=== PATIENT | female | born 1935 | race Caucasian/White ===

== ENCOUNTER 2018-10-14 21:42 | Emergency (ER) | payer MEDICARE ==
[2018-10-14] MEDS ORDERED: Lorazepam 2 MG/ML VIAL ONE (21:57)
--- NOTE | 2018-10-14 22:41 | RAD ---
Frontal radiograph pelvis: 10/14/2018 COMPARISON: None HISTORY: Fall, trauma, pain FINDINGS: The pelvic ring is intact. The femoral heads project normally over the respective acetabulu m. No widening of the sacroiliac joints or pubic symphysis. No displaced fracture seen. IMPRESSION: No displaced fracture noted.
--- NOTE | 2018-10-14 22:45 | CT ---
CERVICAL SPINE CT WITHOUT CONTRAST: 10/14/18 COMPARISON: None. HISTORY: Fall, trauma, pain. TECHNIQUE: Axial CT imaging at 2.5 mm intervals through the cervical spine with coronal and sagittal reformatte d imaging. FINDINGS: The imaged lung apices are unremarkable. The C1 ring is intact. The occipital condyles, the dens, and the C1-2 articulation demonstrate no acu te findings. No acute fracture or evidence of dislocation is seen. There is multilevel bilateral facet and uncove rtebral osteophyte formation. There is multilevel disc space narrowing and posterior osteophyte forma tion, most prominent at C5-6 and C6-7. The Craniocervical junction, atlantoaxial interspace, and cervicothoracic junction demonstrate no ac [place] findings. No anterolisthesis or retrolisthesis. No prevertebral soft tissue swelling. No acute fr acture or dislocation. IMPRESSION: Cervical spine degenerative changes with no acute fracture or evidence of dislocation seen. POS: OFF
--- NOTE | 2018-10-14 22:48 | CT ---
HEAD CT WITHOUT CONTRAST: 10/14/18 HISTORY: Fall, trauma, pain. TECHNIQUE: Axial CT imaging at 5 mm intervals from vertex through skull base without contrast. FINDINGS: There is a posterior scalp hematoma just to the right of midline near the vertex measuring 2.7 cm. No associated calvarial fracture is seen. The imaged paranasal sinuses and mastoid air cells are well a erated. There is moderate cerebral volume loss with associated prominence of the CSF containing space s. Periventricular hypodensity noted, evidence of small vessel disease. No intracranial hemorrhage, m idline shift, or mass effect. IMPRESSION: Cerebral volume loss and evidence of small vessel disease. Focal scalp hematoma noted posteriorly ne ar the vertex with no evidence for associated fracture or intracranial hemorrhage. POS: OFF
== END 2018-10-14 23:33 | disposition home or self-care (01) ==
LOC: ERS 21:42
DX: S16.1XXA Strain of muscle, fascia and tendon at neck level, initial encounter (principal); S00.03XA Contusion of scalp, initial encounter; S70.00XA Contusion of unspecified hip, initial encounter; F03.90 Unspecified dementia, unspecified severity, without behavioral disturbance, psychotic disturbance, mood disturbance, and anxiety; F41.9 Anxiety disorder, unspecified; Z79.01 Long term (current) use of anticoagulants; Z79.899 Other long term (current) drug therapy; Z87.891 Personal history of nicotine dependence; W19.XXXA Unspecified fall, initial encounter
CPT/HCPCS: 70450; 72125; 72170; 96374; J2060

== ENCOUNTER 2019-03-12 21:28 | Observation (INO) | payer MEDICARE ==
[2019-03-12] MEDS ORDERED: Acetaminophen 500 MG TAB ONE (22:29)
--- NOTE | 2019-03-12 22:55 | RAD ---
EXAM: Single view of the chest HISTORY: Preoperative radiograph COMPARISON: None FINDINGS: Single view of the chest shows a normal sized cardiomediastinal silhouette. Increased inte rstitial markings are present. Atherosclerotic calcifications are seen in the aorta There is no evidence of consolidation, mass, or pleural effusion. Degenerative changes are seen in the spine. The patient has a right proximal humerus fracture of uncertain age. IMPRESSION: No evidence of acute cardiopulmonary disease
--- NOTE | 2019-03-12 22:59 | RAD ---
EXAM: 2 views of the right hip HISTORY: Right hip pain after falling from wheelchair COMPARISON: Pelvic radiograph 10/14/2018. FINDINGS: 2 views of the right hip shows malalignment of the right inferior pubic ramus and left supe rior pubic ramus. No degenerative changes are seen. No proximal femur fracture is seen. No soft tissue swelling is present. IMPRESSION: Right inferior pubic ramus and left superior pubic ramus fracture.
--- NOTE | 2019-03-12 23:00 | RAD ---
Exam: Single view of the pelvis HISTORY: Pelvic pain after falling from wheelchair COMPARISON: 10/14/2018 FINDINGS: A single view the pelvis shows malalignment of the right inferior pubic ramus and left supe rior pubic ramus. These were not seen on the prior radiograph and likely represent fractures that have occurred in the interim. No degenerative changes seen in either hip. IMPRESSION: Right inferior pubic ramus and left superior pubic ramus fractures
--- NOTE | 2019-03-12 23:02 | RAD ---
EXAM: 2 views of the right humerus HISTORY: Right arm pain after falling from a wheelchair COMPARISON: None FINDINGS: 2 views of the right humerus shows a fracture of the right humeral neck. No dislocation of the right shoulder is seen. There is also a fracture of the supracondylar distal humerus. IMPRESSION: 1. Right humeral neck fracture 2. Supracondylar distal humerus fracture
--- NOTE | 2019-03-12 23:03 | CT ---
EXAM: CT brain without contrast HISTORY: Fall from wheelchair with multiple fractures. Head trauma. COMPARISON: 10/14/2018 TECHNIQUE: Multiple contiguous axial images were obtained and a CT of the brain without contrast. FINDINGS: There are scattered hypodensities in the subcortical and periventricular white matter consi stent with small vessel ischemic disease. There is no evidence of hydrocephalus, intracranial hemorrhage, or extra-axial fluid collection. The calvarium and overlying soft tissues are unremarkable. The visualized paranasal sinuses and masto id air cells are well aerated. IMPRESSION: No evidence of acute intracranial abnormality
--- NOTE | 2019-03-12 23:03 | RAD ---
EXAM: 3 views of the right shoulder HISTORY: Shoulder pain after falling from wheelchair COMPARISON: None FINDINGS: There is a right humeral neck fracture which is impacted. No dislocation of the glenohumera l joint is seen. Surrounding soft tissue swelling is present. IMPRESSION: Right humeral neck fracture
--- NOTE | 2019-03-12 23:04 | CT ---
EXAM: CT of the cervical spine without contrast HISTORY: Neck pain after fall from wheelchair COMPARISON: 10/14/2018 TECHNIQUE: Multiple contiguous axial images were obtained in a CT of the cervical spine without contr ast. Sagittal and coronal reformats were performed. FINDINGS: The vertebral bodies and intervertebral discs demonstrate normal height and alignment witho ut fracture or subluxation. Moderate degenerative changes are present. No prevertebral soft tissue swelling is seen. The posterior facets are well aligned. Normal alignment of the skull base with the cervical spine is seen. The lung apices and cervical soft tissues are unremarkable. IMPRESSION: No evidence of acute osseous abnormality of the cervical spine.
--- NOTE | 2019-03-12 23:06 | RAD ---
EXAM: 4 views of the right elbow HISTORY: Fall from wheelchair with elbow pain COMPARISON: None FINDINGS: No elbow effusion is seen. There is a fracture of the supracondylar humerus which is intra- articular and predominantly involves the medial epicondyle. No significant degenerative changes are seen. Hardware is seen in the radius and ulna from prior fracture repair of the radius and ulna. IMPRESSION: Acute supracondylar fracture of the humerus.
--- NOTE | 2019-03-12 23:17 | RAD ---
EXAM: 2 views of the right forearm HISTORY: Fall from wheelchair with multiple fractures COMPARISON: None FINDINGS: The patient is status post ORIF of the radius and ulna. The ulnar fracture is fixated with a plate and screws. The radial fracture is spanned by a pin which has broken. Shrapnel is seen in the midportion of the forearm. There is now union of the radial fracture. Severe degenerative changes are seen in the right wrist. There is a supracondylar fracture of the distal humerus involving the medial epicondyle. IMPRESSION: 1. No acute fracture of the radius or ulna 2. Supracondylar distal humerus fracture
[2019-03-12 23:25] LABS: #Eosinphils 0.1 thou/uL (0.0-0.7); #Lymphocytes 0.7 thou/uL (1.20-3.40); #Monocytes 0.6 thou/uL (0.11-0.59); #Neutrophils 9.7 thou/uL (1.40-6.50); %Basophils 0.2 % (0.0-1.0); %Eosinophils 0.5 % (0.0-10.0); %Lymphocytes 6.2 % (21.0-51.0); %Neutrophils 88.2 % (42.0-75.0); Hemoglobin 11.1 g/dL (12.0-16.0); Mean Corpuscular HGB CONC 33.3 g/dL (32.0-36.0); Mean Corpuscular Hemoglobin 29.7 pg (27.0-31.0); Mean Platelet Volume 7.5 fL (7.4-10.4); Platelet Count 268 thou/uL (130-400); RBC Distribution Width 13.2 % (11.5-14.5); Red Blood Cell (RBC) Count 3.75 mill/uL (4.20-5.40)
[2019-03-12 23:31] LABS: PTT 27.8 SEC (22.9-36.1); Prothrombin Time 13.6 SEC (12.0-14.7)
[2019-03-12 23:46] LABS: ALT (SGPT) 10 U/L (8-55); AST (SGOT) 14 U/L (5-34); Albumin 3.5 g/dL (3.4-4.8); Alkaline Phosphatase 61 U/L (40-150); Anion Gap 10 mmol/L (10-20); BUN (Urea Nitrogen) 19 mg/dL (9.8-20.1); Bilirubin, Total 0.4 mg/dL (0.2-1.2); Calc. Creatinine Clearance 0 mL/min (70-130); Calcium 8.8 mg/dL (7.8-10.44); Carbon Dioxide 24 mmol/L (23-31); Chloride 108 mmol/L (98-107); Estimated GFR-MDRD 60; Globulin 2.5 g/dL (2.4-3.5); Glucose 129 mg/dL (83-110); Potassium 3.9 mmol/L (3.5-5.1); Sodium 138 mmol/L (136-145)
[2019-03-12] MEDS ORDERED: Ondansetron PF 4 MG/2 ML Vial ONE (23:58)
[2019-03-12] MEDS ORDERED: Morphine 4 MG/ML VIAL ONE (23:58)
[2019-03-13] MEDS ORDERED: hydrALAZINE 20 MG/ML VIAL SLOW IVP PRN (01:42)
[2019-03-13] MEDS ORDERED: Morphine 4 MG/ML VIAL SLOW IVP PRN (01:42)
[2019-03-13] MEDS ORDERED: Ondansetron ODT 4 MG TAB PO PRN (01:42)
[2019-03-13] MEDS ORDERED: Morphine 2 MG/ML SYRINGE SLOW IVP PRN (01:42)
[2019-03-13] MEDS ORDERED: Ondansetron PF 4 MG/2 ML Vial IVP PRN (01:42)
[2019-03-13] MEDS ORDERED: Dextrose 50% Abboject 50 ML SYRINGE SLOW IVP PRN (01:42)
[2019-03-13] MEDS ORDERED: Dextrose 5% in Water 1,000 ML IV PRN (01:42)
[2019-03-13] MEDS ORDERED: Ketorolac Tromethamine 30 MG/ML VIAL IVP SCH (02:00)
[2019-03-13] MEDS: Sodium Chloride 0.9% 1,000 ML IV SCH ×2 (02:40→11:11)
[2019-03-13] MEDS: Ketorolac Tromethamine 30 MG/ML VIAL IVP SCH ×2 (05:28→11:14)
[2019-03-13 06:21] LABS: #Lymphocytes 0.8 thou/uL (1.20-3.40); #Monocytes 0.5 thou/uL (0.11-0.59); #Neutrophils 6.5 thou/uL (1.40-6.50); %Basophils 0.1 % (0.0-1.0); %Eosinophils 0.3 % (0.0-10.0); %Lymphocytes 10.6 % (21.0-51.0); %Monocytes 6.8 % (0.0-10.0); %Neutrophils 82.1 % (42.0-75.0); Hemoglobin 10.1 g/dL (12.0-16.0); Mean Corpuscular HGB CONC 32.6 g/dL (32.0-36.0); Mean Corpuscular Volume 88.9 fL (78.0-98.0); Mean Platelet Volume 7.7 fL (7.4-10.4); Platelet Count 229 thou/uL (130-400); RBC Distribution Width 13.2 % (11.5-14.5); Red Blood Cell (RBC) Count 3.49 mill/uL (4.20-5.40); White Blood Cell (WBC) Count 7.9 thou/uL (4.8-10.8)
[2019-03-13 06:49] LABS: Anion Gap 11 mmol/L (10-20); BUN (Urea Nitrogen) 19 mg/dL (9.8-20.1); Calc. Creatinine Clearance 46 mL/min (70-130); Calcium 8.2 mg/dL (7.8-10.44); Carbon Dioxide 19 mmol/L (23-31); Chloride 111 mmol/L (98-107); Estimated GFR-MDRD 72; Glucose 135 mg/dL (83-110); Potassium 5.3 mmol/L (3.5-5.1); Sodium 136 mmol/L (136-145)
--- NOTE | 2019-03-13 07:29 | HP ---
REQUESTING PHYSICIAN: Dr. Bolden. ATTENDING SURGEON: Dr. Vail. CONSULTATIONS: Orthopedics, Dr. Conte. HISTORY OF PRESENT ILLNESS: The patient is an 84-year-old female who resides in assisted living facility, who primarily moves a bowel utilizing a wheelchair, though the patient will try to ambulate at times independently, which was the case tonight. The patient was reportedly trying to get to her wheelchair when she fell landing on her buttock and right upper extremity. It was not witness, but nursing staff found her, she was awake and was able to tell them what happened. Family at bedside reports that she uses a wheelchair more frequently over the past several weeks due to arthritic-type pain and deconditioning weakness. ALLERGIES: PENICILLIN. CURRENT MEDICATIONS: MiraLAX, Tylenol, lorazepam, ranitidine, trazodone, escitalopram oxalate, tolterodine, Dexilant. PAST MEDICAL HISTORY: Dementia, GERD. PAST SURGICAL HISTORY: Open reduction and internal fixation of right ulna fracture. SOCIAL HISTORY: Family reports that she smoked greater than 10 years ago. No drug or alcohol use. REVIEW OF SYSTEMS: 10-point review of systems is negative as otherwise stated. PHYSICAL EXAMINATION: VITAL SIGNS: Blood pressure 141/56, heart rate 75, respirations 19, oxygen saturation 97% on room air, and temperature is 98.6. GENERAL: The patient is resting comfortably in bed. She was asleep is I entered the room, but would open her eyes to verbal stimuli. Her Felix Coma Scale is 14, -1 for her eye opening. The patient was verbal and appropriate, was able to interact with me and her family members. HEENT: Head is normocephalic and atraumatic. Eyes, extraocular motions intact. PERRLA bilaterally. Ears are atraumatic without discharge. Nose is atraumatic without discharge. Oropharynx is clear. NECK: Nontender. Trachea is midline. No JVD. CHEST: Clear to auscultation with good inspiratory and expiratory effort. HEART: Regular rate and rhythm. ABDOMEN: Soft, flat, nontender with active bowel sounds. PELVIS: Stable with pain on the right greater than left groin area consistent with her pubic symphysis fractures. EXTREMITIES: Neurovascularly intact x4. The right upper extremity has a small skin tear on the proximal forearm. There is swelling noted at the elbow joint. There is tenderness to palpation to the right shoulder, again consistent with her fractures. BACK: By report is atraumatic and nontender. LABORATORY FINDINGS: White blood cell count 11.0, hemoglobin 11.1, hematocrit 33.4, platelets 268. Sodium 138, potassium 3.9, chloride 108, CO2 of 24, BUN 19, creatinine 0.89, glucose 129. LFTs are unremarkable. PT 13, INR 1.0, PTT 28. RADIOGRAPHIC REPORT: CT of the brain without contrast shows no evidence of acute intracranial abnormality. CT of the C-spine without contrast shows no evidence of acute osseous abnormality of the C-spine. AP chest x-ray shows no evidence of acute cardiopulmonary disease. Radiographs of the right shoulder show a right humeral neck fracture. Views of the right humerus show a right humeral neck fracture and a right supracondylar distal humerus fracture. Views of the right elbow show an acute supracondylar fracture of the humerus. AP pelvis shows right inferior pubic rami fracture and left superior pubic rami fractures. Views of the right hip again show the right inferior pubic rami fracture and the left superior pubic rami fracture. Views of the right forearm show the supracondylar humerus fracture and no fracture of the radius or ulna. ASSESSMENT/PLAN: 1. Status post ground level fall, unwitnessed. 2. Right proximal humerus fracture. 3. Right distal humerus supracondylar fracture. 4. Right inferior pubic rami fracture. 5. Left superior pubic rami fractures. 6. Right skin tear. 7. History of Alzheimer's. PLAN: Plan will be to admit the patient to the surgical floor for observation. She will be evaluated tomorrow by Dr. Conte to evaluate surgical options. The patient will have pulmonary toilet, gastritis, mechanical VTE prophylaxis, and pain control. The evaluation, examination, laboratory, and radiographic findings will be discussed with Dr. Vail after this dictation. Job ID: [id number]
[2019-03-13 07:54] LABS: Anion Gap 10 mmol/L (10-20); BUN (Urea Nitrogen) 20 mg/dL (9.8-20.1); Calc. Creatinine Clearance 47 mL/min (70-130); Calcium 8.1 mg/dL (7.8-10.44); Carbon Dioxide 23 mmol/L (23-31); Chloride 110 mmol/L (98-107); Estimated GFR-MDRD 74; Glucose 138 mg/dL (83-110); Potassium 4.3 mmol/L (3.5-5.1); Sodium 139 mmol/L (136-145)
[2019-03-13] MEDS ORDERED: Famotidine 20 MG TAB PO SCH (09:00)
[2019-03-13] MEDS ORDERED: Ibuprofen 600 MG TAB PO PRN (11:20)
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
[2019-03-13] MEDS ORDERED: Acetaminophen 325 MG TAB PO SCH (14:00)
[2019-03-13 17:02] VITALS: BP 185/67; TEMP 98.7
[2019-03-13 18:28] LABS: Bilirubin Negative (Negative); Blood, Urine Negative (Negative); Clarity Clear (Clear); Glucose, Urine (Dipstick) Normal (Negative); Leukocyte Negative Leu/uL (Negative); Nitrite Negative (Negative); Protein, Urine (Dipstick) 10 mg/dL (Neg-Trace); Urobilinogen Normal mg/dL (Less than 2)
[2019-03-13] MEDS ORDERED: RANITIDINE HCL 150 MG PO SCH (21:00)
[2019-03-13] MEDS ORDERED: Trospium 20 MG TAB PO SCH (21:00)
[2019-03-13] MEDS ORDERED: Lorazepam 0.5 MG TAB PO SCH (21:00)
[2019-03-14] MEDS ORDERED: Escitalopram Oxalate 10 mg Tablet PO SCH (09:00)
[2019-03-14] MEDS ORDERED: Polyethylene Glycol 3350 17 GM Packet PO SCH (09:00)
--- NOTE | 2019-03-14 12:12 | EKG ---
Test Reason : Blood Pressure : / mmHG Vent. Rate : 080 BPM Atrial Rate : 080 BPM P-R Int : 152 ms QRS Dur : 078 ms QT Int : 380 ms P-R-T Axes : 046 009 073 degrees QTc Int : 438 ms Normal sinus rhythm Possible Inferior infarct , age undetermined Cannot rule out Anterior infarct , age undetermined Abnormal ECG Confirmed by CORY MODI D.O. ([id number]), television news video editor JARED POWELL ([id number]) on 03/14/2019 12:11:58 PM Referred By: Confirmed By:CORY MODI D.O.
== END 2019-03-13 19:37 | disposition hospice, inpatient (51) ==
LOC: ERS 21:28 → T4-B 03-13 00:27
PROVIDERS: ADMIT Surgery; ATTEND Surgery
DX: S32.592A Other specified fracture of left pubis, initial encounter for closed fracture (principal); S32.591A Other specified fracture of right pubis, initial encounter for closed fracture; S42.414A Nondisplaced simple supracondylar fracture without intercondylar fracture of right humerus, initial encounter for closed fracture; S42.201A Unspecified fracture of upper end of right humerus, initial encounter for closed fracture; F03.90 Unspecified dementia, unspecified severity, without behavioral disturbance, psychotic disturbance, mood disturbance, and anxiety; K21.9 Gastro-esophageal reflux disease without esophagitis; Z88.0 Allergy status to penicillin; Z79.899 Other long term (current) drug therapy; Z87.891 Personal history of nicotine dependence; W18.30XA Fall on same level, unspecified, initial encounter
CPT/HCPCS: 36415; 70450; 71045; 72125; 72170; 80048; 80053; 81003; 85025; 85610; 85730; 93005; 96361; 96374; 96375; 96376; G0378; J0360; J1885; J2270; J2405